=== PATIENT | male | born 1980 | race Caucasian/White ===

== ENCOUNTER 2018-07-10 20:24 | Emergency (ER) ==
[2018-07-10 20:32] VITALS: TEMP 97.5; BMI 29.6
[2018-07-10] MEDS ORDERED: ATIVAN PO STA (20:38)
[2018-07-10] MEDS ORDERED: CATAPRES PO STA (20:38)
--- NOTE | 2018-07-10 21:14 | ED.PDOC ---
General ED Provider: Dr. JYAA TERRY-ER Chief Complaint: Hypertension Stated Complaint: my bp is up Time Seen by Physician: 20:35 Mode of Arrival: Walk-In Information Source: Patient Exam Limitations: No limitations Primary Care Provider: SERGE VELEZ Nursing and Triage Documentation Reviewed and Agree: Yes Does patient meet sepsis criteria?: No System Inflammatory Response Syndrome: Not Applicable Sepsis Protocol: For patient's 13 years and over: Temp is 96.8 and below OR 101 and greater Pulse >90 BPM Resp >20/minute Acutely Altered Mental Status Are patient's symptoms suggestive of a new infection, such as: -Pneumonia -Skin, Soft Tissue -Endocarditis -UTI -Bone, Joint Infection -Implantable Device -Acute Abdominal Infection -Wound Infection -Meningitis -Blood Stream Catheter Infection -Unknown Cardiovascular Complaint Exam - Hypertension Complaint/Exam Onset/Duration: today Symptoms Are: Still present Timing: Constant Reported B/P Prior to Arrival: 190/100 Aggravating: Reports: None Associated Signs and Symptoms: Reports: Anxiety, Recent stress Recent Change in Medications: No A/V Nicking: No Papilledema Present: No JVD Present: No Carotid Bruit Present: Yes Femoral Pulses Bounding: No Differential Diagnoses: Hypertensive Urgency Review of Systems - Review Of Systems Constitutional: Reports: No symptoms Eyes: Reports: No symptoms Ears, Nose, Mouth, Throat: Reports: No symptoms Respiratory: Reports: No symptoms Cardiac: Reports: No symptoms GI: Reports: No symptoms : Reports: No symptoms Musculoskeletal: Reports: No symptoms Skin: Reports: No symptoms Neurological: Reports: No symptoms Endocrine: Reports: No symptoms Hematologic/Lymphatic: Reports: No symptoms All Other Systems: Reviewed and Negative Past Medical History - Past Medical History Previously Healthy: No Endocrine: Reports: Unknown Cardiovascular: Reports: Hypertension, Unknown Respiratory: Reports: Unknown Hematological: Reports: Unknown Gastrointestinal: Reports: Unknown Genitourinary: Reports: Unknown Neuro/Psych: Reports: Unknown Musculoskeletal: Reports: Unknown Cancer: Reports: Unknown - Surgical History General Surgical History: Reports: Unknown - Family History Family History: Reports: Unknown - Social History Smoking Status: Former smoker Hx Substance Use: Yes (ALCOHOL) Alcohol Screening: Occasionally - Immunizations Tetanus Shot up to Date: Yes Physical Exam - Physical Exam Appearance: Well-appearing, No pain distress, Well-nourished Eyes: HELEN, EOMI, Conjunctiva clear ENT: Ears normal, Nose normal, Oropharynx normal Neck: Supple Respiratory: Airway patent Cardiovascular: RRR, Pulses normal, No rub, No murmur GI/: Soft Musculoskeletal: Normal strength, ROM intact, No edema, No calf tenderness Skin: Warm, Dry, Normal color Neurological: Sensation intact, Motor intact, Reflexes intact, Cranial nerves intact, Alert, Oriented Psychiatric: Affect appropriate, Mood appropriate Re-Evaluation - Re-Evaluation Time of Re-Evaluation: 21:15 Status: Improved Vital Signs Stable: Yes Pain Level: 130/88 Appearance: NAD Lungs: Clear Skin: Warm and Dry Neuro: Alert and Oriented X3 CV: RRR Critical Care Note - Critical Care Note Total Time (mins): 0 Course - Course Orders, Labs, Meds: Orders Category Date Time 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] .ONCE EMERGENCY 07/10/18 20:39 Active Clonidine HCl [Catapres] MEDS 07/10/18 20:38 Discontinued 0.1 mg PO ONCE STA Lorazepam [Ativan] MEDS 07/10/18 20:38 Discontinued 1 mg PO ONCE STA Medications Discontinued Medications Generic Name Dose Route Start Last Admin Trade Name Freq PRN Reason Stop Dose Admin Clonidine 0.1 mg 07/10/18 20:38 07/10/18 20:44 Catapres PO 07/10/18 20:39 0.1 mg ONCE STA Administration Lorazepam 1 mg 07/10/18 20:38 07/10/18 20:44 Ativan PO 07/10/18 20:39 1 mg ONCE STA Administration Vital Signs: Temp Pulse Resp BP Pulse Ox 07/10/18 20:30 97.5 F L 88 16 157/102 H 98 HANK Risk Score HANK Risk Score: Risk Score Odds of by 30D 0 0.1 (0.1-0.2) 1 0.3 (0.2-0.3) 2 0.4 (0.3-0.5) 3 0.7 (0.6-0.9) 4 1.2 (1.0-1.5) 5 2.2 (1.9-2.6) 6 3.0 (2.5-3.6) 7 4.8 (3.8-6.1) Departure - Departure Time of Disposition: 21:15 Disposition: HOME SELF-CARE Discharge Problem: Anxiety Hypertension Qualifiers: Hypertension type: essential hypertension Qualified Code(s): I10 - Essential ( primary) hypertension Instructions: Anxiety (ED) Condition: Good Pt referred to PMD for follow-up: Yes IPMP verified?: No Additional Instructions: ativan 1mg bid prn #10=--clonidine 0.1mg bid prn systolic bp over 140 or diastiolic bp 90--f/u qwith dr velez next week Allergies/Adverse Reactions: Allergies No Known Allergies Allergy (Unverified 07/10/18 20:35) Home Medications: Ambulatory Orders Diltiazem HCl [Diltiazem ER] 180 mg PO DAILY 01/25/14 Clonazepam [Klonopin] 1 mg PO PRN PRN 07/10/18 Losartan Potassium [Cozaar] 100 mg PO DAILY 07/10/18 Rosuvastatin Calcium [Crestor] 10 mg PO BEDTIME 07/10/18 Disposition Discussed With: Patient
[2018-07-10 21:24] VITALS: BP 139/88
== END 2018-07-10 21:25 | disposition home or self-care (01) ==
LOC: ED 20:24
DX: F41.9 Anxiety disorder, unspecified (principal); I10 Essential (primary) hypertension
CPT/HCPCS: 99283

== ENCOUNTER 2019-02-26 23:51 | Emergency (ER) ==
[2019-02-27 00:05] VITALS: BP 151/92; TEMP 97.9; BMI 29.5
[2019-02-27] MEDS ORDERED: CATAPRES PO STA (00:12)
--- NOTE | 2019-02-27 01:21 | ED.PDOC ---
General ED Provider: Dr. JAYA TERRY-ER Chief Complaint: Hypertension Stated Complaint: im out of my zoloft and klonipin and rafat been drinking a lot and my bp is up Time Seen by Physician: 23:55 Mode of Arrival: Walk-In Information Source: Patient Exam Limitations: No limitations Primary Care Provider: SERGE VELEZ Nursing and Triage Documentation Reviewed and Agree: Yes Does patient meet sepsis criteria?: No System Inflammatory Response Syndrome: Not Applicable Sepsis Protocol: For patient's 13 years and over: Temp is 96.8 and below OR 101 and greater Pulse >90 BPM Resp >20/minute Acutely Altered Mental Status Are patient's symptoms suggestive of a new infection, such as: -Pneumonia -Skin, Soft Tissue -Endocarditis -UTI -Bone, Joint Infection -Implantable Device -Acute Abdominal Infection -Wound Infection -Meningitis -Blood Stream Catheter Infection -Unknown Cardiovascular Complaint Exam - Hypertension Complaint/Exam Onset/Duration: today Symptoms Are: Still present Reported B/P Prior to Arrival: 180/110 Aggravating: Reports: None Alleviating: Reports: None Associated Signs and Symptoms: Reports: Anxiety, Recent stress Recent Change in Medications: No A/V Nicking: No Papilledema Present: No JVD Present: No Carotid Bruit Present: No Femoral Pulses Bounding: Yes Differential Diagnoses: Hypertension, Other Quality Indicator For Non-Traumatic Chest Pain/Syncope: EKG Performed Review of Systems - Review Of Systems Constitutional: Reports: No symptoms Eyes: Reports: No symptoms Ears, Nose, Mouth, Throat: Reports: No symptoms Respiratory: Reports: No symptoms Cardiac: Reports: No symptoms GI: Reports: No symptoms : Reports: No symptoms Musculoskeletal: Reports: No symptoms Skin: Reports: No symptoms Neurological: Reports: No symptoms Endocrine: Reports: No symptoms Hematologic/Lymphatic: Reports: No symptoms All Other Systems: Reviewed and Negative Past Medical History - Past Medical History Previously Healthy: No Endocrine: Reports: Unknown Cardiovascular: Reports: Hypertension, Unknown Respiratory: Reports: Unknown Hematological: Reports: Unknown Gastrointestinal: Reports: Unknown Genitourinary: Reports: Unknown Neuro/Psych: Reports: Unknown Musculoskeletal: Reports: Unknown Cancer: Reports: Unknown - Surgical History General Surgical History: Reports: Unknown - Family History Family History: Reports: Unknown - Social History Smoking Status: Former smoker Hx Substance Use: Yes (ALCOHOL) Alcohol Screening: Heavy - Immunizations Tetanus Shot up to Date: (UNKNOWN) Physical Exam - Physical Exam Appearance: Well-appearing, No pain distress, Well-nourished Eyes: HELEN, EOMI, Conjunctiva clear ENT: Ears normal, Nose normal, Oropharynx normal Neck: Supple Respiratory: Airway patent, Breath sounds clear, Breath sounds equal, Respirations nonlabored Cardiovascular: RRR GI/: Soft Musculoskeletal: Normal strength, ROM intact, No edema, No calf tenderness Skin: Warm, Dry, Normal color Neurological: Sensation intact, Motor intact, Reflexes intact, Cranial nerves intact, Alert, Oriented Psychiatric: Affect appropriate, Mood appropriate, Anxious Interpretation - EKG Interpretation Time of EKG #1: : Rate: Normal Rhythm: Sinus Ectopy: None [place]: NL ST Segment: Normal Interpretation: nsar Re-Evaluation - Re-Evaluation Time of Re-Evaluation: : Status: Improved Vital Signs Stable: Yes Pain Level: 0 Appearance: NAD Lungs: Clear Skin: Warm and Dry Neuro: Alert and Oriented X3 CV: RRR Additional Comments: bp 130/80 after clonidine Critical Care Note - Critical Care Note Total Time (mins): 0 Course - Course Hematology/Chemistry: 02/27/19 00:20 02/27/19 00:20 Orders, Labs, Meds: Lab Review 02/27/19 02/27/19 02/27/19 00:20 00:20 00:21 WBC 6.63 RBC 4.31 L Hgb 14.4 Hct 40.6 L MCV 94.2 H MCH 33.4 H MCHC 35.5 H RDW Coeff of Shashi 12.0 Plt Count 222 Immature Gran % (Auto) 0.3 Neut % (Auto) 50.4 Lymph % (Auto) 35.9 Mclennan % (Auto) 11.3 H Eos % (Auto) 1.5 Baso % (Auto) 0.6 Immature Gran # (Auto) 0.0 Neut # (Auto) 3.3 Lymph # (Auto) 2.4 Mclennan # (Auto) 0.8 Eos # (Auto) 0.1 Baso # (Auto) 0.0 Sodium 135.3 Potassium 3.92 Chloride 98.5 Carbon Dioxide 22.2 Anion Gap 18.52 BUN 13.6 Creatinine 0.84 Estimated GFR (MDRD) 101.00 BUN/Creatinine Ratio 16.19 Glucose 93.7 Calcium 9.60 Total Bilirubin 0.47 AST 63.5 H ALT 89.5 H Alkaline Phosphatase 99.8 Total Protein 8.16 Albumin 5.11 H Globulin 3.05 Albumin/Globulin Ratio 1.67 Urine Color Urine Clarity Urine pH Ur Specific [place] Urine Protein Urine Glucose (UA) Urine Ketones Urine Blood Urine Nitrite Urine Bilirubin Urine Urobilinogen Ur Leukocyte Esterase Urine Opiates Screen Negative Ur Oxycodone Screen Negative Urine Methadone Screen Negative Ur Propoxyphene Screen Negative Ur Barbiturates Screen Negative U Tricyclic Antidepress Negative Ur Phencyclidine Scrn Negative Ur Amphetamine Screen Negative U Methamphetamines Scrn Negative U Benzodiazepines Scrn Negative Urine Cocaine Screen Negative U Cannabinoids Screen Negative Plasma/Serum Alcohol 63.4 H 02/27/19 00:21 WBC RBC Hgb Hct MCV MCH MCHC RDW Coeff of Shashi Plt Count Immature Gran % (Auto) Neut % (Auto) Lymph % (Auto) Mclennan % (Auto) Eos % (Auto) Baso % (Auto) Immature Gran # (Auto) Neut # (Auto) Lymph # (Auto) Mclennan # (Auto) Eos # (Auto) Baso # (Auto) Sodium Potassium Chloride Carbon Dioxide Anion Gap BUN Creatinine Estimated GFR (MDRD) BUN/Creatinine Ratio Glucose Calcium Total Bilirubin AST ALT Alkaline Phosphatase Total Protein Albumin Globulin Albumin/Globulin Ratio Urine Color Yellow Urine Clarity Clear Urine pH 6.0 Ur Specific [place] <=1.005 Urine Protein Negative Urine Glucose (UA) Negative Urine Ketones Negative Urine Blood Negative Urine Nitrite Negative Urine Bilirubin Negative Urine Urobilinogen 0.2 Ur Leukocyte Esterase Negative Urine Opiates Screen Ur Oxycodone Screen Urine Methadone Screen Ur Propoxyphene Screen Ur Barbiturates Screen U Tricyclic Antidepress Ur Phencyclidine Scrn Ur Amphetamine Screen U Methamphetamines Scrn U Benzodiazepines Scrn Urine Cocaine Screen U Cannabinoids Screen Plasma/Serum Alcohol Orders Category Date Time Status EKG-(ED ONLY) Stat CARDIO 02/27/19 00:05 Completed ED LABEL REWINDER APPLIED .ONCE EMERGENCY 02/27/19 00:05 Active BLOOD ALCOHOL Stat LAB 02/27/19 00:20 Completed CBC W/ AUTO DIFF Stat LAB 02/27/19 00:20 Completed COMPREHENSIVE METABOLIC PANEL Stat LAB 02/27/19 00:20 Completed URINALYSIS C & S IF INDICATED Stat LAB 02/27/19 00:21 Completed URINE DRUG SCREEN (RAPID FOR ED) [DRUG SCREEN, URINE, LAB 02/27/19 00:21 Completed RAPID] Stat Clonidine HCl [Catapres] MEDS 02/27/19 00:12 Discontinued 0.2 mg PO ONCE STA Medications Discontinued Medications Generic Name Dose Route Start Last Admin Trade Name Vashti PRN Reason Stop Dose Admin Clonidine 0.2 mg 02/27/19 00:12 02/27/19 00:27 Catapres PO 02/27/19 00:13 0.2 mg ONCE STA Administration Vital Signs: Temp Pulse Resp BP Pulse Ox 02/26/19 23:51 97.9 F 74 20 151/92 H 97 HANK Risk Score HANK Risk Score: Risk Score Odds of by 30D 0 0.1 (0.1-0.2) 1 0.3 (0.2-0.3) 2 0.4 (0.3-0.5) 3 0.7 (0.6-0.9) 4 1.2 (1.0-1.5) 5 2.2 (1.9-2.6) 6 3.0 (2.5-3.6) 7 4.8 (3.8-6.1) Departure - Departure Time of Disposition: : Disposition: HOME SELF-CARE Discharge Problem: Anxiety Instructions: Generalized Anxiety Disorder (ED) Condition: Good Pt referred to PMD for follow-up: Yes IPMP verified?: No Additional Instructions: stop etoh consumption---klonipin 0.5 daily prn #7---zoloft 75mg daily #7---keep appt with dr velez on friday Allergies/Adverse Reactions: Allergies No Known Allergies Allergy (Verified 02/27/19 00:05) Home Medications: Ambulatory Orders Clonazepam [Klonopin] 0.5 mg PO PRN PRN 07/10/18 Losartan Potassium [Cozaar] 50 mg PO DAILY 07/10/18 Rosuvastatin Calcium [Crestor] 10 mg PO BEDTIME 07/10/18 Diltiazem HCl [Diltiazem ER] 240 mg PO DAILY 02/27/19 Metoprolol Tartrate 25 mg PO BID 02/27/19 Sertraline HCl [Zoloft] 75 mg PO BEDTIME 02/27/19 Disposition Discussed With: Patient, Family
== END 2019-02-27 01:35 | disposition home or self-care (01) ==
LOC: ED 23:51
DX: F41.9 Anxiety disorder, unspecified (principal); I10 Essential (primary) hypertension; Z79.899 Other long term (current) drug therapy; Z76.0 Encounter for issue of repeat prescription
CPT/HCPCS: 36415; 80053; 80306; 80307; 81001; 85025; 93005; 93010; 99283